=== PATIENT | male | born 1980 | race Two or more races ===

== ENCOUNTER 2024-04-06 05:54 | Emergency (ER) | payer OTHER ==
[~2024-04-06] VITALS: Ht 182.9 cm; Wt 90.7 kg
[2024-04-06] MEDS ORDERED: DEXAMETHASONE SODIUM PHOSPHATE 4 MG/ML VIAL IM STA (08:29)
[2024-04-06] MEDS ORDERED: KETOROLAC TROMETHAMINE 30 MG VIAL IM STA (08:29)
[2024-04-06] MEDS ORDERED: AMOXICILLIN500 MG PO (08:39)
[2024-04-06] MEDS ORDERED: GABAPENTIN100 M2 PO (08:39)
[2024-04-06] MEDS ORDERED: CELEBREX200MG PO (08:39)
== END 2024-04-06 08:46 | disposition home or self-care (01) ==
LOC: ER 05:56
DX: K08.89 Other specified disorders of teeth and supporting structures (principal)